=== PATIENT | male | born 1980 | race Caucasian/White ===

== ENCOUNTER 2024-04-09 13:16 | Emergency (ER) | payer SELFPAY ==
[2024-04-09] MEDS ORDERED: KEFLEX500 MG PO (14:04)
[2024-04-09 14:27] VITALS: BP 143/72
[2024-04-09] MEDS ORDERED: POVIDONE IODINE 0.5 OZ/BTL TOP ONE (14:30)
[2024-04-09] MEDS ORDERED: LIDOcaine HCl 1% (Local Anesth.) 20 ML VIAL IJ ONE (14:30)
[2024-04-09] MEDS ORDERED: Diph, Acellular Pertussis, Tet 0.5 ML/VIAL (Tdap) SDV IM ONE (14:30)
[2024-04-09] MEDS ORDERED: BUPIVACAINE HCL PF 0.5 % 50 MG/10 ML SDV STI ONE (14:35)
== END 2024-04-09 14:30 | disposition home or self-care (01) | DRG 605 ==
LOC: ED 13:16
PROC: 0HQFXZZ Repair Right Hand Skin, External Approach (ICD-10-PCS; principal; 2024-04-09)
DX: S61.316A Laceration without foreign body of right little finger with damage to nail, initial encounter (principal); W26.8XXA Contact with other sharp object(s), not elsewhere classified, initial encounter